=== PATIENT | female | born 2000 | race Caucasian/White ===

== ENCOUNTER 2022-02-25 07:15 | Emergency (ER) | payer MEDICAID | END 2022-02-25 07:40 | disposition home or self-care (01) | LOC: CSHERS 07:15 | DX: K04.7 Periapical abscess without sinus (principal) | CPT/HCPCS: 99282 ==

== ENCOUNTER 2023-02-15 18:46 | Emergency (ER) | payer BC, MEDICAID | END 2023-02-15 22:16 | disposition home or self-care (01) | LOC: CSHERS 18:46 | DX: K04.7 Periapical abscess without sinus (principal) | CPT/HCPCS: 99282 ==